=== PATIENT | female | born 1995 | race Caucasian/White ===

== ENCOUNTER → 2019-10-13 08:30 | Outpatient (CLI) | payer OTHER, SELFPAY ==
[2019-10-13 09:57] LABS: Glucose 85 mg/dL (70-100)
[2019-10-13 10:05] LABS: Follicle Stimulating Hormone 1.91 mIU/mL; Free T4, Direct Thyroxine 1.08 ng/dL (0.78-2.19); Luteinizing Hormone < 0.22 mIU/mL; Progesterone, Total 2.31 ng/mL
[2019-10-13 10:19] LABS: Thyroid Stimulating Hormone 2.18 uIU/mL (0.47-4.68)
[2019-10-15 06:36] LABS: Insulin Level Total 6.7 uIU/mL (2.6-24.9)
[2019-10-18 11:36] LABS: Percent Free Testosterone 2.04 % (0.50-2.80); Testosterone Free 0.79 ng/dL (0.10-0.85); Testosterone Total 38.9 ng/dL (10.0-55.0)
== END ==
LOC: LAB 08:31
PROVIDERS: PCP Registered Nurse Diabetes Educator; Referring Provider Obstetrics & Gynecology; Visit Provider Obstetrics & Gynecology
DX: E28.2 Polycystic ovarian syndrome (principal)
CPT/HCPCS: 36415; 82627; 82947; 83001; 83002; 83525; 84144; 84402; 84403; 84439; 84443

== ENCOUNTER → 2019-10-30 08:20 | Outpatient (CLI) | payer OTHER, SELFPAY ==
[2019-10-30 09:17] LABS: HEMOLYSIS < 15 (0-50)
[2019-10-30 09:27] LABS: Estimated Glomerular Filt Rate > 60.0 mL/min (>60); Potassium 4.3 mmol/L (3.4-5.1)
[2019-11-03 12:18] LABS: Prolactin 14.2 ng/mL (3.0-18.6)
== END ==
PROVIDERS: PCP Registered Nurse Diabetes Educator; Referring Provider Obstetrics & Gynecology; Visit Provider Obstetrics & Gynecology
DX: Z01.812 Encounter for preprocedural laboratory examination (principal); E87.6 Hypokalemia; T50.2X5A Adverse effect of carbonic-anhydrase inhibitors, benzothiadiazides and other diuretics, initial encounter; E28.1 Androgen excess
CPT/HCPCS: 36415; 82565; 83498; 84132; 84146

== ENCOUNTER → 2019-11-06 08:47 | Outpatient (CLI) | payer OTHER, SELFPAY ==
[2019-11-06 09:49] LABS: HEMOLYSIS < 15 (0-50); Potassium 4.2 mmol/L (3.4-5.1)
== END ==
PROVIDERS: PCP Registered Nurse Diabetes Educator; Referring Provider Obstetrics & Gynecology; Visit Provider Obstetrics & Gynecology
DX: T50.2X5A Adverse effect of carbonic-anhydrase inhibitors, benzothiadiazides and other diuretics, initial encounter (principal)
CPT/HCPCS: 36415; 84132

== ENCOUNTER → 2019-11-13 08:47 | Outpatient (CLI) | payer OTHER, SELFPAY ==
[2019-11-13 09:51] LABS: HEMOLYSIS < 15 (0-50); Potassium 4.2 mmol/L (3.4-5.1)
== END ==
PROVIDERS: PCP Registered Nurse Diabetes Educator; Referring Provider Obstetrics & Gynecology; Visit Provider Obstetrics & Gynecology
DX: E28.2 Polycystic ovarian syndrome (principal)
CPT/HCPCS: 36415; 84132

== ENCOUNTER → 2019-11-23 10:44 | Outpatient (CLI) | payer OTHER, SELFPAY ==
--- NOTE | 2019-11-23 10:45 | DI.CT.S_ITS ---
PROCEDURE: CT ABDOMEN PELVIS WO/W CON INDICATIONS: high DHEAS TECHNIQUE: After the administration of oral contrast, 5 mm thick sections acquired from the diaphragms to the iliac crests. After the administration of intravenous contrast, 5 mm thick sections acquired from the diaphragms to the symphysis. 5 mm thick coronal and sagittal reformats were acquired. For radiation dose reduction, the following was used: automated exposure control, adjustment of mA and/or kV according to patient size. COMPARISON: None. FINDINGS: Image quality: Excellent. ABDOMEN: Lung bases: Lung bases are clear. Heart size is normal. Solid organs: Normal appearance of both adrenal glands. No adrenal gland mass or enlargement. Kidneys unremarkable. Approximately 6 millimeter gallstone. Otherwise normal appearance of the gallbladder, liver, spleen, and pancreas. Bowel and peritoneum: Stomach, small and large bowel loops are normal in caliber and wall thickness. No free fluid or air. Nodes and vessels: No retroperitoneal or mesenteric adenopathy by size criteria. Aorta and inferior vena are normal in caliber. Miscellaneous: No ventral hernias. PELVIS: Genitourinary: Bladder wall thickness is normal. Miscellaneous: No inguinal hernias or adenopathy. Bones: No suspicious bony lesions. No vertebral body compression fractures. IMPRESSION: No adrenal gland mass or enlargement. Cholelithiasis. Dictated by: Zak Cates M.D. on 11/23/2019 at 14:54 Approved by: Zak Cates M.D. on 11/23/2019 at 14:56
== END ==
PROVIDERS: PCP Registered Nurse Diabetes Educator; Referring Provider Registered Nurse Diabetes Educator; Visit Provider Obstetrics & Gynecology
DX: E28.1 Androgen excess (principal); K80.20 Calculus of gallbladder without cholecystitis without obstruction
CPT/HCPCS: 74178; Q9967